=== PATIENT | female | born 2000 | race African-American/Black ===

== ENCOUNTER 2021-10-11 16:13 | Emergency (ER) | payer OTHER ==
[~2021-10-11] VITALS: Ht 165.1 cm; Wt 88.5 kg
--- NOTE | 2021-10-11 16:35 | NUR ---
PT STATED SHE FEELS BETTER AND WANTS TO GO BACK TO REHAB PLACE. AWARE.
--- NOTE | 2021-10-11 16:40 | NUR ---
[facility] [employer] [facility] WILL TAKE THE PT BACK WHEN DISCHARGED. [facility] OR [facility] .
[2021-10-11 16:52] VITALS: BP 130/84
--- NOTE | 2021-10-11 16:52 | NUR ---
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
--- NOTE | 2021-10-11 17:07 | NUR ---
NOT SEEN BY MD. TRANSPORT IS HERE [employer].
== END 2021-10-11 17:09 | disposition left against medical advice (07) ==
LOC: ER 17:03
DX: Z53.21 Procedure and treatment not carried out due to patient leaving prior to being seen by health care provider (principal)